=== PATIENT | female | born 2005 | race Caucasian/White ===

== ENCOUNTER 2025-06-14 17:12 | Emergency (ER) | payer BC | END 2025-06-14 18:53 | disposition home or self-care (01) | LOC: ERS 17:12 | DX: S13.4XXA Sprain of ligaments of cervical spine, initial encounter (principal); S40.212A Abrasion of left shoulder, initial encounter; V89.2XXA Person injured in unspecified motor-vehicle accident, traffic, initial encounter | CPT/HCPCS: 70450; 71045; 72125; 72170; G0390 ==